=== PATIENT | female | born 1990 | race African-American/Black ===

== ENCOUNTER 2024-02-22 12:18 | Outpatient (AMB) | payer BC, SELFPAY ==
--- NOTE | 2024-02-22 12:26 | MHC.OFFVIS ---
Vital Signs 02/22/24 12:28 Height 5 ft 0.5 in Weight 210 lb 15.718 oz BMI 40.5 BP 110/80 Blood Pressure Location Rt brachial Position Sitting Pulse 67 Pulse Oximetry (%) 98 Intake Visit Reasons: + BARBARA Intake Note: New patient, externally referred by [facility] in [place], presents today to discuss +BARBARA. Referred by Aubree Peres. Patient reports overproduction of yeast for the past 2 years. She states these have presented in different forms. Patient has been taking vitamins, has made diet changes, and has had meds from urgent care. Patient denies any pain today. Delivery Helper Required: No Accompanied by: Self / Same As Patient Allergies No Known Allergies Allergy (Verified 02/22/24 12:32) HPI Comments Details: Ms. Ahumada 33 yoF presents for evaluationf of +BARBARA in the context of recurring Skin yeast infections. She describes that she has had a recurring rash for the last 3 years. --chronic skin infections for the last 3 years- suspected to be yeast and or fungal- patient has been doing self treatment - Clomatrizole, myconazole powder, rubbing alcohol, dietary changes, supplements such tumeric, lemon juice, antiinflammatories cocktails and other internet suggestions. She went to PCP, whom she says opted not to treat, in the event that the rash will not be present for the specialist to see. --She has had once incident of oral yeast - thought to be thrush when she was on ABX - cleared with Magic mouthwash. This was before the 3 year span - she has not had oral yeast with this chronic outbreak --rashes mainly to groin, under breast and on face and trunk. - Her face is the clearest it has been in 3 years --may be associated with thee start of weight loss journey. She thinks it started to happen about the same time. --was about 300 lbs. --just started Probiotics. --Uses Monistat for vaginal yeast, may have developed a tolerance; switch to boric acid and has not had ROS since november 2023. [facility], [facility] Medical History (Updated 03/07/24 @ 17:35 by GALE Ledesma) Rash BARBARA positive Hiatal hernia Anemia Depression Anxiety ADHD (attention deficit hyperactivity disorder) Surgical History (Updated 02/16/24 @ 15:35 by MAHAD Gonzalez) History of repair of anterior cruciate ligament of right knee Family History (Updated 02/22/24 @ 12:40 by MAHAD Gonzalez) Other Thyroid disease Social History (Updated 02/22/24 @ 12:39 by MAHAD Gonzalez) Alcohol intake: current Alcohol intake frequency: a few times a month Patient Tobacco Use Status: Never used Tobacco Substance Use Type: Marijuana Substance Use Frequency: Monthly Current occupational status: employed and student Review of Systems Const All systems reviewed & are unremarkable except as noted in HPI and below Physical Exam Vital Signs: Last Vital Signs Pulse 67 02/22/24 12:28 BP 110/80 02/22/24 12: Pulse Ox 98 02/22/24 12:28 BMI result Body Mass Index 40.5 Vital signs reviewed. Constitutional: Non-toxic appearing. No acute distress. Well-developed and well-nourished. HEENT: Normocephalic and atraumatic. External auditory canals without erythema or edema bilaterally. Dry mucous membranes. No pharyngeal erythema or exudates. Skin: Warm and dry. No rashes or lesions noted. Neck: Full and painless range of motion. No cervical lymphadenopathy. Cardio: Regular rate and rhythm. No murmurs, gallops, or rubs. No lower extremity edema. No JVD. Pulmonary: No respiratory distress. No accessory muscle usage. Musculoskeletal: Normal range of motion in joints throughout the body. No deformity or other signs of injury. Neuro: Alert and oriented x4. Cranial nerves 2-12 grossly intact. No focal deficits appreciated. Assessment & Plan Assessment & Plan (1) BARBARA positive: Code(s): R76.8 - Other specified abnormal immunological findings in serum Category: Medical (2) Rash: Code(s): R21 - Rash and other nonspecific skin eruption Category: Medical Plan #+BARBARA 1:80 with Negaitve ENAs: BARBARA is not significant at this time, ENAs are negative. No rash seen on PE. I do not think further analysis is required. I recommend for her to continue probiotics and start prebiotics. The fungal rash and symptoms described (see HPI) has been decreasing in recurrence and severity over time. I suspect and patient agrees, this may be a part of the the detox process that her body is going through as she sheds the excess weight and improve her dietary choices. If the fungal outbreaks worsens such as increase in frequency, I recommend a GI consult to check her GI tract for yeast overgrowth. For now she describes that she has not had a rash in over 3 months. I also discussed with her to continue the natural regimen that she has been doing and hold off to introduce any systemic medication at this time, since the symptoms are resolving. If recurrence, a DERM consult with biopsy would be her best option to assess pathology. I spent 40 minutes reviewing history, evaluating patient and documenting Coding Level of Care Code New Pt Level 4 (81087) Diagnoses BARBARA positive R76.8 Rash R21
[2024-02-22 12:28] VITALS: BP 110/80; PULSE 67; O2SAT 98; BMI 40.5
== END 2024-02-22 13:16 | disposition home or self-care (01) ==
PROVIDERS: Visit Provider Nurse Practitioner Family
DX: R76.8 Other specified abnormal immunological findings in serum (principal); R21 Rash and other nonspecific skin eruption
CPT/HCPCS: 99204

== ENCOUNTER → 2024-02-22 12:18 | Outpatient (BNVA) | payer BC, SELFPAY | PROVIDERS: Visit Provider Nurse Practitioner Family ==